=== PATIENT | female | born 1960 | race Caucasian/White ===

== ENCOUNTER 2022-01-16 05:55 | Emergency (ER) | payer BC ==
[~2022-01-16] VITALS: Ht 162.6 cm; Wt 72.7 kg
[2022-01-16 05:59] VITALS: TEMP 98
[2022-01-16] MEDS ORDERED: LIDODERM 5% PATC1 EA TP ×2 (07:11→07:47)
[2022-01-16] MEDS ORDERED: FLEXERIL5 MG PO ×2 (07:11→07:47)
[2022-01-16 08:00] VITALS: BP 146/87; PULSE 75
== END 2022-01-16 08:01 | disposition home or self-care (01) ==
LOC: COL.ER 05:55
DX: M54.50 Low back pain, unspecified (principal)